=== PATIENT | male | born 1980 | race Caucasian/White ===

== ENCOUNTER 2017-03-08 12:12 | Day surgery (SDC) | payer OTHER ==
[2017-03-08] MEDS ORDERED: AMPICILLIN/SULBACTAM 3 GM PDS ONE (12:18)
[2017-03-08] MEDS ORDERED: FENTANYL 100MCG/2ML SOL ONE (12:36)
[2017-03-08] MEDS ORDERED: KETOROLAC TROMETHAMINE 30 MG/ML SOL ONE (12:42)
[2017-03-08] MEDS ORDERED: WATER, STERILE 20 ML 20 ML ONE (12:51)
[2017-03-08] MEDS ORDERED: BUPIVACAINE/EPI 0.5% 10 ML SOL INFIL ONE (12:55)
[2017-03-08] MEDS ORDERED: KETAMINE HYDROCHLORIDE 50 MG/ML SOL ONE (13:18)
[2017-03-08] MEDS ORDERED: MIDAZOLAM 2 MG/2 ML SOL ONE (13:18)
[2017-03-08] MEDS ORDERED: BETAMETHASONE 6 MG/ML SUS ONE (13:27)
[2017-03-08] MEDS ORDERED: CISATRACURIUM BESYLATE 2 MG/ML IV ONE (13:28)
[2017-03-08] MEDS ORDERED: ONDANSETRON HCL 4 MG/2 ML SOL ONE (13:50)
[2017-03-08] MEDS ORDERED: LIDOCAINE HCL 1% MPF SOL ONE (13:50)
[2017-03-08] MEDS ORDERED: METOCLOPRAMIDE HYDROCHLORIDE 5 MG/ML SOL ONE (13:50)
[2017-03-08] MEDS ORDERED: PROPOFOL 500 MG/50 ML EMU IV ONE (13:50)
[2017-03-08] MEDS ORDERED: PROPOFOL 10 MG/ML EMU IV ONE (14:18)
[2017-03-08] MEDS ORDERED: GLYCOPYRROLATE 0.2 MG/ML SOL ONE (14:29)
[2017-03-08] MEDS ORDERED: NEOSTIGMINE METHYLSULFATE 1 MG/ML SOL ONE (14:29)
[2017-03-08 16:14] VITALS: RESP 20; TEMP 97.6
[2017-03-08 17:34] VITALS: BP 139/89; PULSE 118; O2SAT 96
== END 2017-03-08 17:24 | disposition home or self-care (01) | DRG 446 ==
LOC: SURG 12:12
PROVIDERS: ATTEND Surgery
DX: K80.12 Calculus of gallbladder with acute and chronic cholecystitis without obstruction (principal); K82.8 Other specified diseases of gallbladder
CPT/HCPCS: 99001; 99070; J0295; J0702; J1885; J2250; J2405; J2710; J2765; J3010; J7643; J2001; J2704